=== PATIENT | male | born 1990 | race Caucasian/White ===

== ENCOUNTER 2020-02-21 05:52 | Day surgery (SDC) | payer BC ==
[2020-02-21] MEDS ORDERED: fentaNYL 100 MCG/2 ML SDV IV ONE ×4 (05:53→07:07)
[2020-02-21] MEDS ORDERED: Midazolam 1 MG/ML 2 ML SDV IV ONE ×7 (05:53→07:04)
[2020-02-21] MEDS ORDERED: Sodium Chloride 0.9% 10 ML Syringe FLUSH PRN (06:00)
[2020-02-21] MEDS ORDERED: Dextrose 5%-0.45% NaCl 1,000 ML IV SCH (06:00)
[2020-02-21] MEDS ORDERED: Midazolam 1 MG/ML 2 ML SDV ONE (06:15)
[2020-02-21] MEDS ORDERED: fentaNYL 100 MCG/2 ML SDV ONE (06:16)
--- NOTE | 2020-02-21 07:39 | OR ---
DATE: 02/21/2020 PROCEDURE: Total colonoscopy. INSTRUMENT USED: [id number] Olympus video colonoscope. PREMEDICATIONS: Fentanyl 150 mcg intravenous, Versed 4 mg intravenous. The procedure was done under pulse oximetry, BP recording, and rn urology. INDICATION: Patient with rectal bleeding. Colonoscopy examination is done for detection of any polypoid lesions and removal, endoscopic hemostasis therapy if needed. DESCRIPTION OF PROCEDURE: Initial rectal exam was unremarkable. Rigid anoscopy was normal. The colonoscope was passed with ease up to the ileocecal area. Photographs were taken of the normal-appearing cecum, identified by landmarks of appendiceal orifice and double-bulged ileocecal folds. No bleeding was noted from any of the visualized areas at the commencement of the examination. Bowel preparation was found to be adequate, [facility] scale 3 in right and transverse colon, 2 in left colon, total score 8. No stricture. No vascular ectasia. No large isolated ulcerations seen. No evidence of diffuse inflammatory bowel disease in the form of friability, contact bleeding, or ulcerations. No polyp or tumor mass identified. Probing the proximal sides of folds and flexures using adequate distention and clearing up the stool material, withdrawal of the scope was made. Cecum to rectum time over 6 minutes. No bleeding was noted from any of the visualized areas at the completion of examination. IMPRESSION: Normal study. The patient tolerated the procedure well. [facility] /[id number]
== END 2020-02-21 09:13 | disposition home or self-care (01) ==
LOC: DL.ENDO 05:52
PROVIDERS: ATTEND Internal Medicine Gastroenterology
DX: K62.5 Hemorrhage of anus and rectum (principal); E66.09 Other obesity due to excess calories; E79.0 Hyperuricemia without signs of inflammatory arthritis and tophaceous disease; Z79.1 Long term (current) use of non-steroidal anti-inflammatories (NSAID); Z68.39 Body mass index [BMI] 39.0-39.9, adult
CPT/HCPCS: 45378; J2250; J3010; J7042; G0121